=== PATIENT | male | born 1950 | race Caucasian/White ===

== ENCOUNTER 2018-04-01 22:15 | Emergency (ER) | payer OTHER ==
[~2018-04-01] VITALS: Ht 182.9 cm; Wt 78.5 kg
[2018-04-02 04:31] VITALS: BP 131/65
[2018-04-02] MEDS ORDERED: KETOROLAC TROMETH 60MG/2ML VIAL IM ONE (04:45)
== END 2018-04-02 04:52 | disposition home or self-care (01) ==
LOC: ER 22:15
DX: S20.212A Contusion of left front wall of thorax, initial encounter (principal); S80.811A Abrasion, right lower leg, initial encounter; R51 Headache; W13.2XXA Fall from, out of or through roof, initial encounter; Y93.89 Activity, other specified; Y99.8 Other external cause status; Y92.89 Other specified places as the place of occurrence of the external cause
CPT/HCPCS: 70450; 71250; 72125; 73552; 73590; 73630; 74176; 96372; 99284; J1885

== ENCOUNTER 2021-09-15 20:30 | Inpatient (IN) | payer OTHER ==
[~2021-09-15] VITALS: Ht 182.9 cm; Wt 85.5 kg
[2021-09-15] MEDS ORDERED: MORPHINE SULFATE 4 MG/ML SYR/VIAL IV ONE ×3 (21:00→22:45)
[2021-09-15] MEDS ORDERED: ONDANSETRON HCL 4 MG/2 ML VIAL IV ONE (21:00)
[2021-09-15 21:38] LABS: Basophils # (auto) 0.1 10 ^3/uL (0-0.2); Basophils % (auto) 0.9 % (0.0-2.0); Eosinophils # (auto) 0.2 10 ^3/uL (0-0.8); Eosinophils % (auto) 2.4 % (0.0-7.0); Hematocrit 38.6 % (41.0-53.0); Hemoglobin 13.5 g/dL (13.5-17.5); Lymphocytes # (auto) 0.9 10 ^3/uL (0.4-5.4); Lymphocytes % (auto) 11.6 % (10.0-50.0); Mean Corpuscular Hemoglobin 32.2 pg (28.0-32.0); Mean Corpuscular Hgb Conc. 34.9 g/dL (32.0-36.0); Mean Corpuscular Volume 92.2 fL (80.0-100.0); Monocytes # (auto) 0.7 10 ^3/uL (0-1.3); Monocytes % (auto) 8.7 % (0.0-12.0); Neutrophils % (auto) 76.4 % (37.0-80.0); Nucleated Red Blood Cells % 0.1 %; Red Blood Cells 4.19 10^6/uL (4.5-5.90); White Blood Cell 7.8 10^3/uL (4.4-10.8)
[2021-09-15 21:56] LABS: BUN/Creatinine Ratio 16.7; Calcium 9.1 mg/dL (8.5-10.1)
[2021-09-15 21:59] LABS: Bilirubin, Total 0.3 mg/dL (0.2-1.0); Total Protein 7.1 g/dL (6.4-8.2)
[2021-09-16] MEDS ORDERED: ACETAMINOPHEN 325 MG TAB PO PRN (03:15)
[2021-09-16] MEDS ORDERED: NITROGLYCERIN 0.4 MG SL TAB SL PRN (04:00)
[2021-09-16] MEDS ORDERED: MORPHINE SULFATE INJ 2 MG/ml SYRG IV PRN (04:00)
[2021-09-16] MEDS: MORPHINE SULFATE INJ 2 MG/ml SYRG IV PRN ×2 (04:11→13:50)
[2021-09-16] MEDS: ONDANSETRON HCL 4 MG/2 ML VIAL IV PRN ×2 (04:12→13:49)
[2021-09-16] MEDS: SOD CHL 0.45% 1,000 ML IV SCH ×2 (04:22→23:15)
[2021-09-16 07:05] LABS: Basophils # (auto) 0 10 ^3/uL (0-0.2); Basophils % (auto) 0.5 % (0.0-2.0); Eosinophils # (auto) 0.1 10 ^3/uL (0-0.8); Eosinophils % (auto) 1.3 % (0.0-7.0); Hematocrit 35.5 % (41.0-53.0); Hemoglobin 12.4 g/dL (13.5-17.5); Lymphocytes # (auto) 0.7 10 ^3/uL (0.4-5.4); Lymphocytes % (auto) 11.9 % (10.0-50.0); Mean Corpuscular Hemoglobin 32.4 pg (28.0-32.0); Mean Corpuscular Hgb Conc. 34.9 g/dL (32.0-36.0); Mean Corpuscular Volume 92.8 fL (80.0-100.0); Monocytes # (auto) 0.8 10 ^3/uL (0-1.3); Monocytes % (auto) 13.2 % (0.0-12.0); Neutrophils # (auto) 4.5 10 ^3/uL (1.6-8.6); Neutrophils % (auto) 73.1 % (37.0-80.0); Red Blood Cells 3.83 10^6/uL (4.5-5.90); Red Cell Distribution Width 13.1 % (11.8-14.3); White Blood Cell 6.1 10^3/uL (4.4-10.8)
[2021-09-16 07:17] LABS: Albumin 3.7 g/dL (3.4-5.0); BUN/Creatinine Ratio 13.7; Calcium 8.6 mg/dL (8.5-10.1); Potassium 4.3 mmol/L (3.5-5.1)
[2021-09-16 07:18] LABS: INR 1.05 (0.9-1.15); Partial Thromboplastin Time 23.5 sec (23.6-33.0)
[2021-09-16 07:20] LABS: Bilirubin, Total 0.5 mg/dL (0.2-1.0); Total Protein 6.8 g/dL (6.4-8.2)
[2021-09-16] MEDS: HYDROcodone-ACET 5/325MG TAB PO PRN ×3 (09:13→21:21)
[2021-09-16] MEDS: ZINC SULFATE 220mg CAP or TAB PO SCH (10:45)
[2021-09-16] MEDS: ASCORBIC ACID 500 MG TAB PO SCH ×2 (10:46→21:23)
[2021-09-16] MEDS: MULTIPLE VITAMIN TAB PO SCH (10:46)
[2021-09-16] MEDS: FAMOTIDINE (10MG/ML) 2ML VL IV SCH (10:48)
[2021-09-16] MEDS: HEPARIN SODIUM (PORCINE) 5000 UNITS/ML 1ML VIAL SC SCH ×2 (10:54→19:52)
[2021-09-16] MEDS: HYDROmorphone HCL 2 MG/ML VL/or syr IV PRN (20:07)
[2021-09-16 22:00] VITALS: BP 98/58
[2021-09-17] MEDS ORDERED: TAMS0.4C36 PO (01:42)
[2021-09-17] MEDS ORDERED: TRAZ-184 PO (01:42)
[2021-09-17] MEDS ORDERED: SERT50TA19 PO (01:42)
[2021-09-17] MEDS: HYDROmorphone HCL 2 MG/ML VL/or syr IV PRN ×6 (03:01→20:55)
[2021-09-17 03:39] LABS: Urine Bacteria NONE SEEN /hpf (None Seen); Urine Blood Negative /uL (Negative); Urine Mucus FEW (None Seen); Urine Specific Gravity 1.017 (1.001-1.035); Urine WBC 11 /hpf (0 - 3)
[2021-09-17] MEDS: HYDROcodone-ACET 5/325MG TAB PO PRN (03:56)
[2021-09-17 05:00] VITALS: BP 101/58
[2021-09-17 05:49] LABS: Basophils # (auto) 0 10 ^3/uL (0-0.2); Basophils % (auto) 0.5 % (0.0-2.0); Eosinophils # (auto) 0.1 10 ^3/uL (0-0.8); Eosinophils % (auto) 1.6 % (0.0-7.0); Hematocrit 35.2 % (41.0-53.0); Hemoglobin 12.3 g/dL (13.5-17.5); Lymphocytes # (auto) 0.7 10 ^3/uL (0.4-5.4); Lymphocytes % (auto) 11.1 % (10.0-50.0); Mean Corpuscular Hemoglobin 32.3 pg (28.0-32.0); Mean Corpuscular Hgb Conc. 34.8 g/dL (32.0-36.0); Mean Corpuscular Volume 92.8 fL (80.0-100.0); Monocytes # (auto) 0.8 10 ^3/uL (0-1.3); Monocytes % (auto) 13.6 % (0.0-12.0); Neutrophils # (auto) 4.3 10 ^3/uL (1.6-8.6); Neutrophils % (auto) 73.2 % (37.0-80.0); Nucleated Red Blood Cells % 0.2 %; White Blood Cell 5.9 10^3/uL (4.4-10.8)
[2021-09-17 06:07] LABS: Potassium 4.4 mmol/L (3.5-5.1)
[2021-09-17 06:14] LABS: Albumin 3.5 g/dL (3.4-5.0); BUN/Creatinine Ratio 12.2; Bilirubin, Total 0.7 mg/dL (0.2-1.0); Calcium 8.6 mg/dL (8.5-10.1)
[2021-09-17] MEDS: ASCORBIC ACID 500 MG TAB PO SCH ×2 (09:15→22:26)
[2021-09-17] MEDS: MULTIPLE VITAMIN TAB PO SCH (09:15)
[2021-09-17] MEDS: FAMOTIDINE (10MG/ML) 2ML VL IV SCH (09:15)
[2021-09-17] MEDS: HEPARIN SODIUM (PORCINE) 5000 UNITS/ML 1ML VIAL SC SCH ×2 (09:15→22:31)
[2021-09-17] MEDS: ZINC SULFATE 220mg CAP or TAB PO SCH (09:15)
[2021-09-17] MEDS ORDERED: ceFAZolin 1GM/50ML 100 ML IV ONE (10:25)
[2021-09-17] MEDS ORDERED: MIDAZOLAM HCL 2MG/2ML 2ml VIAL (1mg/ml) ONE (10:43)
[2021-09-17] MEDS ORDERED: fentaNYL CITRATE 100 MCG/2 ML VL ONE (10:43)
[2021-09-17] MEDS ORDERED: TETRACAINE 1% INJ 2 ML VIAL IJ ONE (10:49)
[2021-09-17] MEDS ORDERED: MORPHINE SULF PF 5 MG/10 ML VIAL ONE (10:49)
[2021-09-17] MEDS ORDERED: ROCURONIUM 10MG/ML 10ML VIAL IV ONE (11:01)
[2021-09-17] MEDS ORDERED: HYDROmorphone HCL 2 MG/ML VL/or syr IV PRN (11:45)
[2021-09-17] MEDS ORDERED: ONDANSETRON HCL 4 MG/2 ML VIAL IV PRN (11:45)
[2021-09-17] MEDS ORDERED: PROPOFOL 10 MG/ML 20 ML IV ONE (12:08)
[2021-09-17] MEDS ORDERED: ONDANSETRON HCL 4 MG/2 ML VIAL ONE (12:08)
[2021-09-17] MEDS ORDERED: LIDOCAINE 2% (LOCAL ANESTH.) PF 5ml SDV ONE (12:08)
[2021-09-17] MEDS ORDERED: HYDROcodone-ACET 10/325MG TAB PO PRN ×2 (12:45→14:30)
[2021-09-17] MEDS: LACTATED RINGER'S 1,000 ML IV SCH ×2 (12:45→22:45)
[2021-09-17] MEDS ORDERED: NEOSTIGMINE 1 MG/ML INJ (10mg/10ML VIAL) ONE (12:45)
[2021-09-17] MEDS ORDERED: GLYCOPYRROLATE 0.2 MG/ML 1ML VIAL ONE (12:45)
[2021-09-17] MEDS: SODIUM CHLOR 0.9% PF (SALINE LOCK) 10ML VIAL/SYR IV SCH ×2 (14:00→22:17)
[2021-09-17 17:00] VITALS: BP 112/69
[2021-09-17] MEDS: ceFAZolin 2 GM in D5W 5% 100 ML IV SCH (18:53)
[2021-09-18 00:36] VITALS: BP 114/66
[2021-09-18] MEDS ORDERED: TEMAZEPAM 15 MG CAP PO ONE (01:00)
[2021-09-18] MEDS: HYDROcodone-ACET 10/325MG TAB PO PRN ×2 (01:13→22:44)
[2021-09-18] MEDS: ceFAZolin 2 GM in D5W 5% 100 ML IV SCH (03:25)
[2021-09-18 04:46] VITALS: BP 119/68
[2021-09-18 05:43] LABS: Basophils # (auto) 0 10 ^3/uL (0-0.2); Basophils % (auto) 0.3 % (0.0-2.0); Eosinophils # (auto) 0 10 ^3/uL (0-0.8); Eosinophils % (auto) 0.5 % (0.0-7.0); Hematocrit 34.3 % (41.0-53.0); Hemoglobin 11.8 g/dL (13.5-17.5); Lymphocytes # (auto) 0.7 10 ^3/uL (0.4-5.4); Lymphocytes % (auto) 10.1 % (10.0-50.0); Mean Corpuscular Hemoglobin 32.1 pg (28.0-32.0); Mean Corpuscular Hgb Conc. 34.5 g/dL (32.0-36.0); Mean Corpuscular Volume 93.1 fL (80.0-100.0); Monocytes # (auto) 1.1 10 ^3/uL (0-1.3); Monocytes % (auto) 15.4 % (0.0-12.0); Neutrophils # (auto) 5.1 10 ^3/uL (1.6-8.6); Neutrophils % (auto) 73.7 % (37.0-80.0); Red Blood Cells 3.68 10^6/uL (4.5-5.90); Red Cell Distribution Width 13.1 % (11.8-14.3); White Blood Cell 6.9 10^3/uL (4.4-10.8)
[2021-09-18 05:59] LABS: BUN/Creatinine Ratio 11.5; Calcium 8.7 mg/dL (8.5-10.1)
[2021-09-18] MEDS: SODIUM CHLOR 0.9% PF (SALINE LOCK) 10ML VIAL/SYR IV SCH ×3 (06:02→22:43)
[2021-09-18] MEDS: LACTATED RINGER'S 1,000 ML IV SCH ×2 (08:45→22:44)
[2021-09-18 09:00] VITALS: BP 114/71
[2021-09-18] MEDS: ASCORBIC ACID 500 MG TAB PO SCH ×2 (09:04→22:43)
[2021-09-18] MEDS: MULTIPLE VITAMIN TAB PO SCH (09:04)
[2021-09-18] MEDS: ZINC SULFATE 220mg CAP or TAB PO SCH (09:04)
[2021-09-18] MEDS: DOCUSATE SOD 100 MG CAP PO PRN (09:04)
[2021-09-18] MEDS: FAMOTIDINE (10MG/ML) 2ML VL IV SCH (09:05)
[2021-09-18] MEDS: HYDROmorphone HCL 2 MG/ML VL/or syr IV PRN ×2 (09:10→23:53)
[2021-09-18] MEDS: HEPARIN SODIUM (PORCINE) 5000 UNITS/ML 1ML VIAL SC SCH ×2 (09:11→22:47)
[2021-09-18 13:00] VITALS: BP 96/72
[2021-09-18 17:00] VITALS: BP 116/68
[2021-09-19 01:44] VITALS: BP 119/67
[2021-09-19] MEDS: LACTATED RINGER'S 1,000 ML IV SCH ×3 (04:45→21:17)
[2021-09-19 05:54] VITALS: BP 106/60
[2021-09-19] MEDS: SODIUM CHLOR 0.9% PF (SALINE LOCK) 10ML VIAL/SYR IV SCH ×3 (06:37→21:09)
[2021-09-19] MEDS: MULTIPLE VITAMIN TAB PO SCH (08:54)
[2021-09-19] MEDS: ZINC SULFATE 220mg CAP or TAB PO SCH (08:54)
[2021-09-19] MEDS: ASCORBIC ACID 500 MG TAB PO SCH ×2 (08:54→21:13)
[2021-09-19] MEDS: HYDROmorphone HCL 2 MG/ML VL/or syr IV PRN ×3 (08:58→19:45)
[2021-09-19 09:16] VITALS: BP 114/68
[2021-09-19] MEDS: DOCUSATE SOD 100 MG CAP PO PRN (10:33)
[2021-09-19] MEDS: HEPARIN SODIUM (PORCINE) 5000 UNITS/ML 1ML VIAL SC SCH ×2 (11:32→21:15)
[2021-09-19 13:00] VITALS: BP 110/66
[2021-09-19 17:03] VITALS: BP 127/70
[2021-09-19 22:00] VITALS: BP 148/68
[2021-09-20] MEDS: HYDROmorphone HCL 2 MG/ML VL/or syr IV PRN ×2 (00:03→06:35)
[2021-09-20 05:00] VITALS: BP 131/72
[2021-09-20] MEDS: SODIUM CHLOR 0.9% PF (SALINE LOCK) 10ML VIAL/SYR IV SCH ×2 (06:27→15:43)
[2021-09-20 09:14] VITALS: BP 116/72
[2021-09-20] MEDS: HEPARIN SODIUM (PORCINE) 5000 UNITS/ML 1ML VIAL SC SCH (09:28)
[2021-09-20] MEDS: ASCORBIC ACID 500 MG TAB PO SCH (09:29)
[2021-09-20] MEDS: ZINC SULFATE 220mg CAP or TAB PO SCH (09:29)
[2021-09-20] MEDS: MULTIPLE VITAMIN TAB PO SCH (09:29)
[2021-09-20] MEDS: LACTATED RINGER'S 1,000 ML IV SCH (10:45)
[2021-09-20 12:24] VITALS: BP 120/71
[2021-09-20] MEDS: HYDROcodone-ACET 10/325MG TAB PO PRN (13:10)
[2021-09-20] MEDS ORDERED: ENO40SY SC (13:44)
[2021-09-20] MEDS ORDERED: HYDR-4902 PO (13:44)
[2021-09-20 15:04] VITALS: BP 116/92
== END 2021-09-20 15:41 | disposition home or self-care (01) | DRG 482 ==
LOC: ER 20:30 → OVERFLOW 09-16 04:02 → EAST 09-16 17:25
PROVIDERS: ADMIT Nurse Practitioner Family; ATTEND Internal Medicine Geriatric Medicine
PROC: 0QS634Z Reposition Right Upper Femur with Internal Fixation Device, Percutaneous Approach (ICD-10-PCS; principal; 2021-09-17 10:56)
DX: S72.141A Displaced intertrochanteric fracture of right femur, initial encounter for closed fracture (principal); F32.A Depression, unspecified; F41.9 Anxiety disorder, unspecified; G47.00 Insomnia, unspecified; Z20.822 Contact with and (suspected) exposure to COVID-19; I10 Essential (primary) hypertension; V00.141A Fall from scooter (nonmotorized), initial encounter; Z85.46 Personal history of malignant neoplasm of prostate; Y93.89 Activity, other specified; Y92.098 Other place in other non-institutional residence as the place of occurrence of the external cause; Y99.8 Other external cause status
CPT/HCPCS: 36415; 71045; 73502; 76000; 80048; 80053; 81001; 83036; 85025; 85610; 85730; 86850; 86900; 86901; 93005; 93306; 96374; 96375; 96376; 97110; 97116; 97530; A4565; G0378; J0690; J2001; J2250; J2405; J2704; J3490; J7060